=== PATIENT | female | born 1985 | race Two or more races ===

== ENCOUNTER 2019-01-26 19:58 | Emergency (ER) | payer MEDICARE, MEDICAID ==
--- NOTE | 2019-01-26 20:07 | UC ---
Nausea/Vomiting/Diarrhea HPI - HPI Summary HPI Summary: Patient is 33 year old female , who present today to the urgent care with nausea and fatigue for about 1 week. She is , LMP around December 10, so approximately 7 weeks treatment. She had one episode of vomiting 5 days ago. She reports that she feels that she might throw up or does not and is able to tolerate by mouth well including solids and liquids. Denies any fever, chills, cough chest pain or shortness of breath . Denies any abdominal pain, diarrhea or constipation. No anginal symptoms. Patient has not tried any over the counter medication. She has not seen any OB yet and has an appointment on February 06. - History of Current Complaint Stated Complaint: NAUSEOUS/ 2 MONTHS PREG Time Seen by Provider: 01/26/19 20:00 Hx Obtained From: Patient ?: Yes - LMP around december 10 - Allergies/Home Medications Allergies/Adverse Reactions: Allergies Allergy/AdvReac Type Severity Reaction Status Date / Time No Known Allergies Allergy Verified 01/26/19 20:17 PMH/Surg Hx/FS Hx/Imm Hx - Additional Past Medical History Additional PMH: No significant past medical history Previously Healthy: Yes Review of Systems All Other Systems Reviewed And Are Negative: Yes Constitutional: Positive: Fatigue Skin: Positive: Negative Eyes: Positive: Negative ENT: Positive: Negative Respiratory: Positive: Negative Cardiovascular: Positive: Negative Gastrointestinal: Positive: Vomiting, Nausea Genitourinary: Positive: Negative Motor: Positive: Negative Neurovascular: Positive: Negative Musculoskeletal: Positive: Negative Neurological: Positive: Negative Psychological: Positive: Negative Is Patient Immunocompromised?: No Physical Exam - Summary Physical Exam Summary: Physical Exam: Const: Appears well. No signs of apparent distress present. Alert and oriented x 3. Musculo: Walks with a normal gait. Head/Face: Atraumatic, normocephalic on inspection. Eyes: EOMI and PERRLA in both eyes. Conjunctivae clear. No discharge noted ENT: Hearing normal. . Respiratory: Respirations are unlabored. Lungs clear to auscultation bilaterally, no wheezing , rhonchi or rales noted . CVS: Regular rate and Rhythm, S1S2 normal , no murmurs identified. Extremities: Peripheral circulation is grossly normal. Pulses 2+ Abdomen : Surgical scar faizan noted .Soft non tender , nondistended , Bowel sounds present . No guarding , rebound tenderness or rigidity noted. Skin: No lesions or rash located on the upper extremities or on the lower extremities. Neuro: Cranial nerves II to XII intact, motor and sensory intact. DTR Intact bilaterally. Mood is normal. Affect is normal. Triage Information Reviewed: Yes Vital Signs Reviewed: Yes Naus/Vom/Diarrhea Course/Dx - Course Course Of Treatment: During the visit today, discussed the findings and further plan. Since she is able to tolerate by mouth well and does not have constant emesis , plan to treat it with dietary changes , Diclegis and Benadryl as needed . I will prescribe the medication to the pharmacy . She'll follow up with her [facility] on February 06 Patient expressed understanding . - Differential Dx/Diagnosis Provider Diagnosis: Nausea/vomiting in Condition At Discharge: Stable Discharge - Sign-Out/Discharge Documenting (check all that apply): Patient Departure All imaging exams completed and their final reports reviewed: No Studies - Discharge Plan Condition: Stable Disposition: HOME Prescriptions: Doxylamine/Pyridoxine(NF) [Diclegis (NF)] 1 tab PO Q8HR PRN 10 Days #30 tab PRN Reason: Nausea Patient Education Materials: Nausea and Vomiting in (ED) Referrals: No Primary Care Phys,NOPCP [Primary Care Provider] - Additional Instructions: You can take Benadryl 25 mg over the counter every 6 hours as needed for nausea. Dietary changes as discussed. Keep yourself hydrated. Please start taking the medication as prescribed to the pharmacy . Follow up with your [facility] as scheduled. Return to Urgent care / ER if symptoms get worse. - Billing Disposition and Condition Condition: STABLE Disposition: Home
[2019-01-26 20:32] VITALS: BP 117/63
== END 2019-01-26 20:46 | disposition home or self-care (01) ==
LOC: UCCORT 19:58
DX: O21.8 Other vomiting complicating pregnancy (principal); R11.0 Nausea
CPT/HCPCS: 99202; G0463